=== PATIENT | male | born 1940 | race Caucasian/White ===

== ENCOUNTER 2020-11-28 23:38 | Emergency (ER) | payer MEDICARE, SELFPAY ==
[2020-11-28 23:41] VITALS: BP 192/78; PULSE 72; RESP 18; TEMP 35.7; O2SAT 96; BMI 25.0
--- NOTE | 2020-11-29 00:35 | ED.DCSUM_ITS ---
- ER Visit Summary Date of Service: 11/29/20 Chief Complaint: Hematuria History of Present Illness: The patient is a [address] Lindsey and Dr. Vieira, a urologist at [facility]. Patient has had cystoscopy which showed a mass which she is scheduled to have surgically removed in 5 days. Reports t hat he was diagnosed with a DVT last month and placed on Eliquis. States that his hematuria which has been present for the past 2 years worsened with the Eliquis. He saw Dr. Lindsey 2 days ago and was changed to Lovenox and reports that he has had even more hematuria since that time. He also complains of dysuria. However, he states that this is chronic and increases when there is more blood in his urine. He feels as though he is emptying his bladder well. Review of systems: General: No fever, chills, cold sweats. Cardiovascular: No chest pain, palpitations. Respiratory: No cough, shortness of breath, dyspnea on exertion. Gastrointestinal: No abdominal pain, nausea, vomiting, diarrhea, melena, or hematochezia. Skin: No rash. Neuro: No headache, numbness, weakness. Physical Examination: Vitals: Stable. Afebrile. General: Well-nourished and well-developed. Head: Normocephalic atraumatic. Neck: Supple, no lymphadenopathy. No JVD. Nontender. Cardiovascular: Regular rate and rhythm. No murmurs. Respiratory: No respiratory distress. Clear to auscultation bilaterally. Abdominal: Soft, nontender, nondistended, normal bowel sounds. No appreciable distention of the bladder. No guarding, rebound, or peritoneal signs. Back: Nontender. Extremities: Nontender, no edema. Skin: Normal color, no rash. Neurologic: Alert and oriented ?3. Cranial nerves II through XII are intact. Normal strength and sensation. Psych: Normal affect. Test Results: Urinalysis shows blood, greater than 100 red blood cells, 10-25 white blood cells, 2+ bacteria. INR is 1.0. PTT is 28.4. Chem-7 shows a glucose 113, BUN of 31, creatinine 1.59. CBC shows an H&H of 10.9 and 34.3, stable neutrophils 76, lymphocytes 13. There are no old labs for comparison. Emergency Department Course and Treatment: Patient is resting comfortably. He was unable to urinate while here. Flores catheter was placed with grossly bloody return of approximately 1000 cc. This was irrigated. It did clear to pink- tinged urine. However, has become bloody again. His urine was sent for culture and he was given Rocephin IV and Azo p.o. Treatment Plan: Patient was discussed with Dr. Callahan, a urologist at [facility], and will be transferred for further evaluation and treatment. Disposition: Transferred in improved condition. Impression: 1. Hematuria. 2. Bladder mass. 3. DVT on Lovenox. 4. Anemia. 5. Renal insufficiency. This note was generated with [employer] dictation software. It may contain incorrect words, spelling, and punctuation that were not noted in review of the chart prior to signing ED Disposition - Plan for ED Patient: Referrals: NOT,DEFINED [NON-STAFF] -
[2020-11-29] MEDS: 0.9% Normal Saline 1,000 ML 1000 ML IV (00:38)
[2020-11-29 00:40] LABS: Absolute Lymphocyte Count 1.17 X10^3/uL (0.83-4.51); Absolute Neutrophil Count 6.8 X10^3/uL (2.0-7.7); Basophil# 0.03 X10^3/uL; Basophil% 0.3 % (0-1); Eosinophil# 0.16 X10^3/uL; Eosinophils% 1.8 % (0-5); Hematocrit 34.3 % (40-54); Hemoglobin 10.9 g/dL (13.0-16.5); Lymphocyte # 1.17 X10^3/ul (4.0); Lymphocyte % 13.1 % (19-41); Mean Corp Hgb Conc 31.8 g/dL (32-36); Mean Corpuscular Hgb 30.9 pg (27.0-32.0); Mean Corpuscular Volume 97.2 fL (80-94); Mean Platelet Vol. 11.4 fl (6.2-12.0); Monocyte# 0.77 X10^3/uL; Monocyte% 8.6 % (0-10); NRBC Flagged by Analyzer 0 % (0-5); Neutrophil % 75.9 % (47-70); Platelet Count 212 K/mm3 (150-450); RBC Distribution Width CV 13.2 % (11.6-14.6); RBC Distribution Width SD 47.1 fl (35.1-43.9); Red Blood Count 3.53 M/mm3 (4.6-6.2)
[2020-11-29 00:44] LABS: Prothrombin Time (Protime)PT. 13.1 SECONDS (11.7-14.9)
[2020-11-29 00:45] LABS: Partial Thromboplast Time 28.4 Seconds (24.1-36.2)
[2020-11-29 00:56] LABS: Anion Gap 6 (5-15); BUN 31 mg/dL (7-18); BUN/Creat Ratio 19.5 RATIO (10-20); Calcium,Total 8.7 mg/dL (8.5-10.1); Chloride 105 mmol/L (98-107); Creatinine, Serum 1.59 mg/dL (0.70-1.30); EST Glomerular Filtration Rate 45 mL/min (>60); Est Glom Filt Rate - Afr Amer 54 mL/min (>60); Estimated Creatinine Clearance 42.03 ml/min; Glucose 113 mg/dL (74-106); Potassium 4.3 mmol/L (3.5-5.1); Sodium Level 139 mmol/L (136-145)
[2020-11-29] MEDS: Lidocaine Jelly 2% 20 ML Syringe (URO-JET) 20 APPLIC TOPICAL (01:43)
[2020-11-29 01:52] VITALS: RESP 18
[2020-11-29 01:57] LABS: Mucous, Urine 0 SEEN /hpf (<or=2+); Squamous Epithelial Cells - UA 0 SEEN /hpf (0-5)
[2020-11-29 02:01] LABS: Color, Urine Red (Yellow); Glucose, Dipstick Normal (Normal); Ketone-Dipstick Negative (Negative); Leukocyte Esterase-Dipstick Negative /ul (Negative); Nitrite-Dipstick Negative (Negative); Occult Blood-Urine 250 /ul (Negative); Protein-Dipstick 500 mg/dl (Negative); Specific Gravity, Urine 1.015 (1.002-1.030); Urine Bilirubin Dipstick Negative (Negative); Urine Clarity Turbid (Clear); Urine Urobilinogen Normal (Normal); Urine pH 6.5 (5.0 - 8.0)
[2020-11-29 02:13] LABS: Red Blood Cells-Urine > 100 SEEN /hpf (0-5); White Blood Cells 10-25 SEEN /hpf (0-5)
[2020-11-29 02:14] LABS: Bacteria 2+ /hpf (None Seen)
[2020-11-29] MEDS: Phenazopyridine 95 MG Tablet 190 MG PO (02:17)
[2020-11-29] MEDS: Ceftriaxone 1 GM/50 ML BAG IV (03:08)
[2020-11-29 03:42] VITALS: BP 172/88; PULSE 77; RESP 18; O2SAT 98
[2020-11-29] MEDS: Labetalol 100 MG/20 ML Vial 20 MG IV (04:55)
[2020-11-29 04:56] VITALS: BP 222/113; PULSE 88; RESP 16; O2SAT 93
[2020-11-29 05:24] VITALS: BP 153/88; PULSE 81; RESP 16; TEMP 36.7; O2SAT 94
[2020-11-29] MEDS: Labetalol (Prefilled) 20 MG/4 ML IV (06:03)
[2020-11-29] MEDS: Metoprolol(XL)Succ 100 MG Tablet PO (06:03)
[2020-11-29] MEDS: Lisinopril 40 MG Tablet PO (06:03)
[2020-11-29 06:51] VITALS: BP 153/88
== END 2020-11-29 06:52 | disposition short-term general hospital (02) ==
PROVIDERS: Emergency Provider Emergency Medicine
DX: R31.9 Hematuria, unspecified (principal); N32.9 Bladder disorder, unspecified; Z86.718 Personal history of other venous thrombosis and embolism; D64.9 Anemia, unspecified; N28.9 Disorder of kidney and ureter, unspecified; I10 Essential (primary) hypertension; E78.00 Pure hypercholesterolemia, unspecified; Z79.01 Long term (current) use of anticoagulants; Z79.899 Other long term (current) drug therapy
CPT/HCPCS: 51702; 80048; 81001; 85025; 85610; 85730; 86850; 86900; 86901; 87086; 96361; 96365; 96374; 96376; 99285; J7030; A4216